=== PATIENT | female | born 2000 | race Caucasian/White ===

== ENCOUNTER 2024-06-14 13:20 | Outpatient (CLI) | payer OTHER, SELFPAY ==
--- NOTE | ~2024-06-14 | US_ITS ---
Pelvic ultrasound. Clinical History: First trimester , establish dates and viability Technique: Realtime transabdominal and transvaginal scanning of the pelvis was performed. Color flow Doppler and Doppler spectral analysis were performed. Findings: The uterus is anteverted, and contains an intrauterine gestation. Yolk sac present. Amo-r ump length of 3.6 cm corresponds to an estimated gestational age of 10 weeks 3 days. heart rate is 165 bpm. The right ovary measures 3.5 x 2.4 x 3.6 cm. No significant right ovarian or adnexal mass is seen. The left ovary measures 2.4 x 1.4 x 1.7 cm. No significant left ovarian or adnexal mass is seen. There is no evidence of free fluid in the cul de sac. Impression: Live intrauterine gestation, with estimated gestational age of 10 weeks 3 days. heart rate is 1 65 bpm. Sonographic LINDSEY is 01/06/2025. Reviewed, dictated and finalized at [facility]. ARCHITECT Impression: Live intrauterine gestation, with estimated gestational age of 10 weeks 3 days. heart rate is 165 bpm. Sonographic LINDSEY is 01/06/2025.
--- OUTSIDE RECORDS SUMMARY | 2024-06-17 13:34 | XMS_ITS | Encounter Summary ---
Author Organization [facility] Address [address] [place] [address] Care Team Providers Care Traditional [facility] Health Practitioner Name Role Phone Mauri Davis MD Primary Care Provider Encounter Details Date Type Department Care Team (Late st Contact Info) Description 12/10/2023 [facility] [address] [place] [address] Jennifer Whalen [address] [place] [address] Social History Tobacco Use Types Packs/Day Years Used Date Smoking Tobacco: Never Assessed Social Connections Answer Date Recorded Social Connections and Isolation 0 09/17/2023 Financial Resource Strain Answer Date R ecorded Financial Resource Strain 0 2023 Stress Answer Date Recorded Stress 0 09/17/2023 Physical Activity Answer Date Recorded Physical Activity 0 09/17/2023 Food Insecurity Answer Date Recorded Food 0 09/17/2023 Transportation Needs Answer Date Record ed Transportation 0 09/17/2023 Housing Stability Answer Date Recorded Housing 0 09/17/2023 Safety and Environment Answer Date Cristo rded Safety 0 09/17/2023 Utilities Answer Date Recorded Utilities 0 09/17/2023 Employment Answer Date Recorded Employment 0 09/17/2023 Comments Unknown Sex and Gender Information Value Date Recorded Sex Assigned at Not on file Legal Sex Female 6:40 PM PDT Gender Identity Female 11/14/2023 4:41 PM PDT Sexual Orientation Bisexual 11/14/2023 4: 41 PM PDT documented as of this encounter Plan of Treatment Not on file documented as of this encounter Procedures Procedure Name Priority Date/Time Associated Diagnosis Comments 30 B RESIN-BASED COMPOSITE - ONE SURFACE POSTERIOR Routine 12/10/2023 12:00 AM CDT 19 O RESIN-BASED COMPOSITE - ONE SURFACE POSTERIOR Routine 12/10/2023 12:00 AM CDT 30 O SEALANT - PER TOOTH Routine 12/10/2023 12:00 AM CDT 19 O SEALANT - PER TOOTH Routine 12/10/2023 12:00 AM CDT 14 O SEALANT - PER TOOTH Routine 12/10/2023 12:00 AM CDT 3 O SEALANT - PER TOOTH Routine 12/10/2023 12:00 AM CDT documented in this encounter Visit Diagnoses Not on filedocumented in this encounter Additional Health Concerns Assessment Noted Time PHQ-9 Depression Total Score: 11 12/27/ 021 9:00 AM PDT documented as of this encounter Care Teams Traditional [facility] Health Practitioner Relationship Specialty Start Date End Date Mauri Davis MD [address] [place] [address] PCP - General 11/14/23 documented as of this encounter
--- OUTSIDE RECORDS SUMMARY | 2024-06-17 13:34 | XMS_ITS | Continuity of Care Document ---
Author Organization [facility] Address [id number] [address] Phone Care Team Providers Care Wireless Technician Name Role Phone John Jimenez DDS Unavailable Unavailable Allergies, Adverse Reactions, Alerts Substance Reaction Status Criticality No Known Allergies Active No Inform ation Medications Medication Instructions Dosage Effective Dates (start - stop) Status Comments pantoprazole 40 mg tablet,delayed release take 1 tablet by oral route every day 40 MG - Active Procedures Procedure Date Bitewings ??? Four Films Periodic Oral Evaluation ??? Established Patient Caries Moderate Risk Exempt From Sealant Measure Prophylaxis ??? Adult Bitewings ??? Four Films Periodic Oral Eval ??? Est Patient - [place] lt Medicaid Prophylaxis ??? Adult SBIRT - AUDIT/DAST, 15-30 MIN OFFICE/OUTPATIENT VISIT EST URINALYSIS AUTO W/O SCOPE OFFICE/OUTPATIENT VISIT EST OFFICE/OUTPATIENT VISIT EST OFFICE/OUTPATIENT VISIT EST OFFICE/OUTPATIENT VISIT, EST Bitewings ??? Four Films Panoramic Film Intraoral ??? Periapical First Film Intraoral ??? Periapical Each Additional Film Intraoral ??? Periapical Each Additional Film Comprehensive Oral Evaluation ??? New Or Established Prophylaxis ??? Adult OFFICE/OUTPATIENT VISIT, EST DESTRUCT B9 LESION, - OFFICE/OUTPATIENT VISIT EST ROUTINE VENIPUNCTURE COMPLETE CBC W/AUTO DIFF WBC COMPREHEN METABOLIC PANEL CHORIONIC GONADOTROPIN TEST LIPID PANEL ASSAY OF FREE THYROXINE ASSAY THYROID STIM HORMONE T3, FREE PREV VISIT, EST, AGE 18-39 THINPREP TIS PAP REFLEX HPV mRNA E6/E7 A OFFICE/OUTPATIENT VISIT, EST Pre-Pay For Services OFFICE/OUTPATIENT VISIT, EST DESTRUCT B9 LESION, 06-08 OFFICE/OUTPATIENT VISIT, EST OFFICE/OUTPATIENT VISIT, EST PSYTX PT&/FAMILY 30 MINUTES OFFICE/OUTPATIENT VISIT, EST OFFICE/OUTPATIENT VISIT, NEW URINE TEST Advance Directives Directive Yes / No Effective Date File Name No Information Encounters Encounter Description Practice Location Reason(s) For Visit Diagnoses Date Provider Providers Copied on Encounter [facility], [id number]- [place], [place], [id number], [place] tel:[phone] [facility] Encounter for dental exam and cleaning w/o abnormal findings 4 Tony Lopez. [address] [place] [address], [id number], [place]. tel:[phone] Referring Provider: John Jimenez, [address] [place] [address], [address]. tel:[phone] [facility], [id number]- [facility], [place], [place], [id number], [place] tel:[phone] [facility] F2 Body mass index (BMI) 39.0-39.9, adult Feb- 3 [facility]. [address], [place], [id number], [place]. tel:[phone] [facility], [id number] [id number] [id number], [place] tel:[phone] [facility] F2 Obesity (BMI 30-39.9)Body mass index (BMI) 30.0-30.9, adult 3 [facility]. [address], [place], [id number], [place]. tel:[phone] [facility], [id number], [address], [place] tel:[phone] [facility] No Information 3 Tony Lopez. [address] [place] [address], [address], [place]. tel:[phone] Referring Provider: John Jimenez, [address] [place] [address], [address]. tel:[phone] OFFICE/OUTPA TIENT VISIT [facility], [id number] [id number], [id number], [place] tel:[phone] [facility] Follow up (chief complaint) Left upper quadrant painBone pain Aug-2 3 Susan Dotson. [address] [place] [address], [id number], [place]. tel:[phone] Referring Provider: Mauri Davis, [address] [place] [address], [address] . tel:[phone] OFFICE/OUTPA TIENT VISIT [facility], [id number], [id number], [place] tel:[phone] [facility] planter warts (chief complaint)k idney pain (chief complaint) Plantar wart, left footUTI (urinary tract infection), uncomplicated Left upper quadrant painPainful micturition, unspecified 3 Susan Dotson. [address] [place] [address], [id number], [place]. tel:[phone] Referring Provider: Mauri Davis, [address] [place] [address], [address] . tel:[phone] OFFICE/OUTPA TIENT VISIT [facility], [id number], [id number], [place] tel:[phone] [facility] Follow up (chief complaint) Sebaceous cystAmenorrhe a 3 Susan Dotson. [address] [place] [address], [id number], [place]. tel:[phone] Referring Provider: Mauri Davis, [address] [place] [address], [address] . tel:[phone] OFFICE/OUTPA TIENT VISIT [facility], [id number], [address], [place] tel:[phone] [facility] follow up (chief complaint) Dysphagia, unspecified typeGastroeso phageal reflux disease without esophagitis 2 Susan Dotson. [address] [place] [address], [id number], [place]. tel:[phone] Referring Provider: Mauri Davis, [address] [place] [address], [address] . tel:[phone] OFFICE/OUTPA TIENT VISIT, [facility], [id number] [id number], [place], [id number], [place] tel:[phone] [facility] Trouble swallowing (chief complaint) Enlarged thyroid 2 Dimitri Salvador. [address] [place] [address], [id number], [place]. tel:[phone] Referring Provider: Madeleine Mosley, [address] [place] [address], [address] . tel:[phone] [facility], [id number] 5827206SED[place]ep[place], [place], [id number], [place] tel:[phone] [facility] No Information 2 Tony Lopez. [address] [place] [address], [address], [place]. tel:[phone] Referring Provider: John Jimenez, [address] [place] [address], [address]. tel:[phone] OFFICE/OUTPA TIENT VISIT, [facility], [id number], [address], [place] tel:[phone] [facility] acid reflux (chief complaint) Gastroesophag eal reflux disease without esophagitis 2 Dimitri Salvador. [address] [place] [address], [id number], [place]. tel:[phone] Referring Provider: Madeleine Mosley, [address] [place] [address], [address] . tel:[phone] OFFICE/OUTPA TIENT VISIT [facility], [id number] [id number], [address], [place] tel:[phone] [facility] test (chief complaint)p lantar wart (chief complaint) Positive testOther fatigueScreen ing for cardiovascula r conditionPlan tar wart, left foot Sep-0 2 Dimitri Salvador. [address] [place] [address], [id number], [place]. tel:[phone] Referring Provider: Madeleine Mosley, [address] [place] [address], [address] . tel:[phone] PREV VISIT, EST, AGE 18-39 [facility], [id number]- [facility], [place], [place], [address], [place] tel:[phone] [facility] annual exam (chief complaint) Encounter for gynecological examination (general) (routine) without abnormal findings 2 Dimitri Salvador. [address] [place] [address], [id number], [place]. tel:[phone] Referring Provider: Madeleine Mosley, [address] [place] [address], [address] . tel:[phone] OFFICE/OUTPA TIENT VISIT, [facility], [id number]- [place], [place], [id number], [place] tel:[phone] [facility] control (chief complaint)a nxiety (chief complaint) Irregular periodsGenera lized Anxiety Disorder 2 Dimitri Salvador. [address] [place] [address], [id number], [place]. tel:[phone] Referring Provider: Madeleine Mosley, [address] [place] [address], [address] . tel:[phone] [facility], [id number] [id number], [id number], [place] tel:[phone] [facility] No Information 2 Dimitri Salvador. [address] [place] [address], [id number], [place]. tel:[phone] OFFICE/OUTPA TIENT VISIT, EST [facility], [id number]- [place], [address], [place] tel:[phone] [facility] N/V, diarrhea, abdominal cramping (chief complaint) Acute gastroenterit is 1 No Information OFFICE/OUTPA TIENT VISIT, [facility], [id number]- [facility], [place], [place], [address], [place] tel:[phone] [facility] wart on bottom of left 2nd toe (chief complaint)r ed bump under left armpit (chief complaint)w ould like labs (chief complaint) Plantar wart, left footBenign skin lesionObesity (BMI 30-39.9)Predi abetesOther benign neoplasm of skin, unspecified 1 No Information OFFICE/OUTPA TIENT VISIT, [facility], [id number], [address], [place] tel:[phone] [facility] itching around anus (chief complaint) Skin yeast infection 1 No Information PSYTX PT&/FAMILY 30 MINUTES [facility], [id number], [place], [address], [place] tel:[phone] [facility] Major depressive disorder, recurrent, moderateGener alized Anxiety Disorder 1 Viridiana Negro. [address], [place], [id number], [place]. tel:[phone] Referring Provider: Sruthi Kemp, [address] [place], [address] . tel:[phone] OFFICE/OUTPA TIENT VISIT, [facility], [id number] [id number], [place], [address], [place] tel:[phone] [facility] referral (chief complaint) AnxietyDepres octavia, unspecified depression typeObesity (BMI 30-39.9)Moder ate major depressionTro uble getting to sleep 1 No Information [facility], [id number] [id number]- [facility], [place], [place], [address], [place] tel:[phone] [facility] Other specified counseling 1 Winifredantonella Ashraf. [address], [place], [place], [place], [address], [place]. tel:[phone] OFFICE/OUTPA TIENT VISIT, [facility], [id number] 8570087BN- [facility], [place], [place], [address], [place] tel:[phone] [facility] (chief complaint) Obesity (BMI 30-39.9)OCP (oral contraceptive pills) initiationIrr egular periodsFamily history of thyroid disorderPredi abetesAnxiety Depression, unspecified depression type 1 No Information Family History Family Member Type Diagnosis Age At Onset No Information Immunizations Vaccine Date Status Comments MCV4 (Menactra) administered Source: [place] [facility] Varicella administered Source: Other R egistry Varicella administered Source: Other R egistry Tdap, Adsorbed administered Source: Other Registry MMR administered Source: Other R egistry DTaP(Infanrix) administered Source: Other Registry Polio-IPV administered Source: Other R egistry Polio-IPV administered Source: Other R egistry MMR administered Source: Other R egistry Hep B, UF administered Source: Other R egistry DTaP(Infanrix) administered Source: Other Registry DTaP(Infanrix) administered Source: Other Registry Polio-IPV administered Source: Other R egistry Hep B, UF administered Source: Other R egistry DTaP(Infanrix) administered Source: Other Registry Hep B, UF administered Source: Other R egistry Polio-IPV administered Source: Other R egistry DTaP(Infanrix) administered Source: Other Registry Payers Payer name Insurance type Covered democrat ID Gisel Kapadia (s) [id number] Social History Type Description Quantity Date Captured Comments Alcohol Use Details Unknown Caffeine Use Details Unknown Tobacco Use Status Current non-smoker Smoking Status Never smoker Non-Smoking Tobacco Use Details : No Details Available : No Details Available Sex Female Sexual Orientation Bisexual Gender Identity Female Chief Complaint And Reason For Visit No Information Reason For Referral Reason For Referral No Information Plan Of Treatment Date Type Action Status Goal Dietary manageme nt education, guidance, and counseling completed Goal Dietary manageme nt education, guidance, and counseling completed Goal Dietary manageme nt education, guidance, and counseling completed Goal Dietary manageme nt education, guidance, and counseling completed Referral Ordered: Referrals: Nuclear Medicine Bone Scan. Location: [facility] ordered Referral Ordered: Referrals: Gynecology. Location: [facility]. Evaluate and treat ordered Referral Ordered: Referrals: ENT. Location: [facility]. Consult ordered Referral Ordered: Referrals: Ct soft tissue neck without contrast. Location: [facility] ordered Referral Ordered: Referrals: thyroid ultrasound. Diagnostic testing ordered Referral Ordered: Referrals: Psychiatry. Evaluate and treat ordered Future Order: Lab Order Preg. Ur ine Qual ([id number]), Sent on: Sent History Of Present Illness Encounter Date Complaint History Of Prese nt Illness Follow up Associated sympt oms include New rx sometimes helps, other times does not and symptoms are worse.. planter warts Had them froze b efore and now they have come back in a different spot kidney pain went to ER on for kidney pain was told she had a UTI and given medication, no changes with medication and still hurting Follow up Had Ct doneHas n ot heard on ENT referral\Would like to go to [facility] back of ear follow up Swallowing probl em Trouble swallowing The difficult y in swallowing began 2 to 3 months ago. The symptoms occur with solids and liquids which cause choking with food sticking in the throat. The client denies aggravating factors. The client denies relieving factors. Additional information: food and liquid, thought it was anxiety but has been getting worse. When she is eating/drinking its almost hard to breathe. states it feels weird on the front of her neck that puts pressure on her throat like its between her throat and her skin, like theres a ball sitting on her throat. acid reflux The onset of the heartburn was 1 year ago. The problem is getting worse. The client reports heartburn. It occurs daily. The symptoms are aggravated by fatty foods and spicy foods. Denies relieving factors. Associated symptoms include reflux. Additional information: when it started mainly at night, would wake her up, stopped eating before bed and avoiding triggers, now during the day as well. Cut down on chocolate, acidic foods, etc helped some. Tums/apple plantar wart dr michele froze a plantar wart on the bottom of her left foot about 5-6 months ago, it went away but then has started coming back about the last month. Wants it frozen again. test Pt wanting a com plete check up, now has insurance and wants things checked. She is wanting her thyroid checked because she had thermography a few months ago and something showed up told to get labs. annual exam Currently pregna nt: no.Client is not contemplating . The client states she uses none for control. Last LMP was 12/19/2021. Her menses is irregular. Negative for dysmenorrhea and menorrhagia. Negative for: breast discharge, breast lump(s) and breast pain. Pertinent negatives include vaginal discharge and vaginal itching. The client does not use tobacco. She has not been exposed to passive smoke. She has not been exposed to passive vaping. Additional information: pts first pap had period from 12/19/21-12/24 then 1 week later started again lasted 13-14 days and looked brownish. anxiety There is improve ment of initial symptoms. The client presents with anxious/fearful thoughts. Additional information: sees Dr. Painting at [facility] for anxiety. control wanting to talk about control- she is on buspar for anxiety. Has been doing homeopathic things to help with her hormones. She is scared that she is going to start control and throw her hormones out of whack. She sees a investigative research specialist, drinks different concentrates, bach lozenges with herbs/roots, magnesium phosphate as well. Has had bad reactions to all sorts of meds. She has been on control 2x already that really messed with her hormones. She has not had a pap smear yet, is very terrified. EST care N/V, diarrhea, abdominal crampin g Pt recently went to the er for n/v and diarrhea on 05/18/21. The vomiting has resolved. She still feels a little nauseated but not severe. she is pushing fluids and eating a little. She declines antiemetic. The ER told her to take Imodium. she states that this has slowed the frequency of diarrhea but is still having diarrhea. She was diffuse abdominal cramps at times. she had a fever at the ER (99.5) but none since. She reports waking with a rash all over her body this morning but this resolved. wart on bottom of left 2nd toe P t would like cryo on a wart of her left 2nd toe. red bump under left armpit Pt prakash s noticed a small bump on left underarm area. She states it gets irritated when she shaves. No signs of infection but would like this gone so it doesn't hurt after shaving anymore. would like labs Pt would like a lab order for the HD. itching around anus Pt has had a constant itch of her anus for 3 days. She states the only thing she has done different is she used her 's shampoo for a bubble bath the night before this started. She also had a bout of diarrhea 4 days ago, this has resolved. She felt for hemorrhoids and didn't feel anything. She has been using hydrocortisone ointment but this is not helping. She had pinworms as a kid but states that itching was intermittent.She has started having vaginal itching too. referral Wanting a referr al for psychiatrist at [facility] in [place]. She reports chronic depression and anxiety. Her anxiety has worsened significantly over the last 2 weeks. She thinks this could be due to a few things. She states she can't function feeling the way she does. She reports panic attacks and trouble sleeping. She would like something for anxiety and sleep in the meantime before she sees psych.Denies unsafe thoughts/intention towards herself or others. She states that she gets so scared during her panic attacks she worries that she might hurt herself even though she doesn't want to (even during a panic attack she does not want to hurt or kill herself). [facility] Pt presents to [facility] with a PCP. She was started on Paxil 20mg in Mar 2020 for anxiety and depression. She states she had bad side effects for the first 2 weeks of taking paxil but these have all resolved. Paxil is helping. She still has days where she thinks she might need an increased dose but is afraid to increase dose because she doesn't want those side effects again. She feels like her anxiety is situational, she is planning a wedding (December 2020). Denies any unsafe thoughts towards herself or others. She has had anxiety and depression in the past. She states that it flared up this fall because of her job at the time. She has quit this job and feels much better. She has irregular periods and has since she started her period at age 9. LMP 2-11-21. Has been on OCP before to help regulate periods. Interested in starting again to regulate periods. She has never been sexually active. Has never had a WWE. No history of blood clots. No tobacco use. She doesn't remember which OCP she was on as a teen but she states it caused her to have some mood swings. Reports being told she was prediabetes in the past. She had labs in Mar 2020 but unsure what they checked. She is willing to get labs now. She was told she needed to have a recheck because her liver enzymes were elevated in Mar 2020. She denies tylenol use. She rarely drinks alcohol (had 1 drink in December 2019). No history of drug use. Reports a strong family history of thyroid disorders. She states she has multiple sx of hypothyroidism but her labs have always been normal. Functional Status Date Functional Assessmen t No Information Instructions Date Instruction Additional Infor mation Dietary management e ducation, guidance, and counseling Related to Body mass index [BMI] 39.0-39.9, adult Dietary management e ducation, guidance, and counseling Related to Body mass index [BMI] 30.0-30.9, adult Dietary management e ducation, guidance, and counseling Related to Obesity (BMI 30-39.9) recommend getting a Nuclear Med Bone Scanwill call when results are available. Ca Lane LPN was acting as the scribe for this visit. The scribe's documentation has been prepared under my direction and personally reviewed by me. I confirm that the note above accurately reflects all work, treatment, procedures, counseling and medical decision making performed by me. Related to Left upper quadrant pain reviewed pt ER recor ds and Ct of her abdomen was normal. discussed with pt since she has been under a lot of stress lately, the pain, and nausea, this can likely be a gastric ulcer. will send Pantoprazole today for her to try. Ca Lane LPN was acting as the scribe for this visit. The scribe's documentation has been prepared under my direction and personally reviewed by me. I confirm that the note above accurately reflects all work, treatment, procedures, counseling and medical decision making performed by me. Related to Left upper quadrant pain cryo done today on w art on bottom of left foot. pt tolerated well. Related to Plantar wart, left foot UA today showed Trace of WBC's. Related to UTI (urinary tract infection), uncomplicated will send referral t [facility] in [place]. they will call with appt. Ca Lane LPN was acting as the scribe for this visit. The scribe's documentation has been prepared under my direction and personally reviewed by me. I confirm that the note above accurately reflects all work, treatment, procedures, counseling and medical decision making performed by me. Related to Amenorrhea drained left postaur icular sebaceous cyst. pt tolerated well. Related to Sebaceous cyst advised pt that her thyroid is not enlarged. recommend referral to ENT and Ct soft tissue neck. will call when results are available. Ca Lane LPN was acting as the scribe for this visit. The scribe's documentation has been prepared under my direction and personally reviewed by me. I confirm that the note above accurately reflects all work, treatment, procedures, counseling and medical decision making performed by me. Related to Dysphagia, unspecified type I will order thyroid ultrasound to evaluate her symptoms, she does have enlarged thyroid on exam. Her thyroid labs were normal in january. follow up in 6-[address] Davis Related to Enlarged thyroid Continue avoiding tr igger foods, elevate head of bed. Work on weight loss. I will prescribe omeprazole 40 mg daily. follow up as scheduled Related to Gastroesophageal reflux disease without esophagitis cryo to wart on left foot, pt tolerated well, contact clinic with any problems Related to Plantar wart, left foot will order screening lipid Relat ed to Screening for cardiovascular condition will check blood pre gnancy test and contact pt with results Related to Positive test will check labs toda y and contact pt with results Related to Other fatigue cbe, pelvic and pap performed todaywe will contact the patient with results and recommendations Related to Encounter for gynecological examination (general) (routine) without abnormal findings continue following u p with [facility] for treatment. Related to Generalized Anxiety Disorder Pt has some irregula r periods, is going to schedule a pap smear. She doesnt want to do anything hormonal, not interested in copper IUD. She will just use condoms for now. Related to Irregular periods Mental health care education Rel ated to Moderate major depression Weight control education Related to Obesity (BMI 30-39.9) Dietary management e ducation, guidance, and counseling Related to Obesity (BMI 30-39.9) Patient advised about exercise R elated to Obesity (BMI 30-39.9) Weight control education Related to Obesity (BMI 30-39.9) Mental health care education Rel ated to Depression, unspecified depression type Assessments Type Assessment Date assessment Encounter for dental exam and cl eaning w/o abnormal findings Patient Care Teams Name Effective Dates (start - stop) Status Members No Information
--- OUTSIDE RECORDS SUMMARY | 2024-06-17 13:34 | XMS_ITS | Encounter Summary ---
Author Organization [facility] Address [address] [place] [address] Care Team Providers Care Health Systems Analyst Name Role Phone Mauri Davis MD Primary Care Provider [phone] Reason for Visit * Reason Comments Office Visit: Converted Data Conversion Encounter Details Date Type Department Care Team (Late st Contact Info) Description 12/02/2023 Dental Interim Note [facility] [address] [place] [address] Default, [facility] Provider [place] Social History Tobacco Use Types Packs/Day Years [...] on file documented as of this encounter Visit Diagnoses Not on filedocumented in this encounter Additional Health Concerns Assessment Noted Time PHQ-9 Depression Total Score: 11 12/27/2 021 9:00 AM PDT documented as of this encounter Care Teams Health Systems Analyst Relationship Specialty Start Date End Date Mauri Davis MD [address] [place] [address] PCP - General 11/14/23 documented as of this encounter
--- OUTSIDE RECORDS SUMMARY | 2024-06-17 13:34 | XMS_ITS | Clinical Summary ---
Author Organization [facility] Address [address] [place] [address] Care Team Providers Care Tractor Trailer Driver Name Role Phone Mauri Davis MD Primary Care Provider [phone] Source Comments PLEASE NOTE, if this patient is a minor, it may be UNLAWFUL to discuss sensitive information that is contained in these records (such as FAMILY PLANNING, MENTAL HEALTH or SUBSTANCE ABUSE) with the minor patient's parent or other person without the patient's specific authorization.[facility] Medications pantoprazole (PROTONIX) 40 mg EC tablet Take 1 Tablet by mouth daily. 08/27/2022 Active Active Problems Problem Noted Date Diagnosed Date Goiter Irregular periods FH: Thyroid disorder Anxiety Prediabetes Body mass index 30+ - obesity Depressive disorder Candidiasis of skin Verruca plantaris Skin lesion Urinary tract infectious disease Acute gastroenteritis Moderate major depression Initial insomnia Dysphagia Bone pain Sebaceous cyst of skin Immunizations Name Administration Dates Next Due DTAP 11/18/2005, 1,04/28/2000,01/14/2000,0 1999 Hep B, Unspecified 03/10/2001,01/14/2000, 000 IPV 11/17/2005,04/06/2001,01/14/2000 ,1999 MENINGOCOCCAL MCV4P (MENACTRA) 03/06/2016 MMR (MMR II/Priorix) 11/20/2005,03/10/2001 TDAP 12/20/2013 Varicella, Live Vaccine 03/09/2014,12/29/2013 Social History Tobacco Use Types Packs/Day Years Used Date Smoking Tobacco: Never Assessed Social Connections Answer Date Recorded Connectedness 0 02/09/2024 Financial Resource Strain Answer Date R ecorded Financial Resource Strain 0 2023 Stress Answer Date Recorded Stress 0 09/17/2023 Physical Activity Answer Date Recorded Physical Activity 0 09/17/2023 Food Insecurity Answer Date Recorded Food 0 02/19/2024 Transportation Needs Answer Date Record ed Transportation 0 09/17/2023 Housing Stability Answer Date Recorded Housing 0 09/17/2023 Safety and Environment Answer Date Cristo rded Safety 0 09/17/2023 Utilities Answer Date Recorded Utilities 0 09/17/2023 Employment Answer Date Recorded Stress 0 02/09/2024 Comments Unknown Sex and Gender Information Value Date Recorded Sex Assigned at Not on file Legal Sex Female 6:40 PM PDT Gender Identity Female 11/14/2023 4:41 PM PDT Sexual Orientation Bisexual 11/14/2023 4: 41 PM PDT Last Filed Vital Signs Vital Sign Reading Time Taken Comments Blood Pressure 134/80 09/23/2022 3:37 PM CDT Pulse 74 09/23/2022 3:37 PM CDT Temperature 36.7 ??C (98 ??F) 09/12/2022 4:31 PM CDT Respiratory Rate 16 09/12/2022 4:31 PM CDT Oxygen Saturation 99% 09/12/2022 4:31 PM CDT Inhaled Oxygen Concentration - - Weight 92.1 kg (203 lb) 09/12/2022 4:31 PM CDT Height 152.4 cm (5') 09/12/2022 4:31 PM CDT Body Mass Index 39.65 09/12/2022 4:31 PM CDT Plan of Treatment Health Maintenance Due Date Last Done Comments HPV Screening 1999 Hepatitis C Screening 1999 Pap + HPV 1999 Tobacco Screening 1999 Chlamydia Screening 2012 Gonorrhea Screening 2012 HIV Screening 2014 Imm-HPV (1 - 3-dose series) 2014 Relationship Safety Screening/Counseling 2014 Depression Monitoring 03/29/2021 12/27/2020 Diabetes Screening 01/31/2023 01/31/2022 Hypertension Screening (#1) 09/23/2023 Imm-DTaP/Tdap/Td (7 - Td or Tdap) 12/21/2023 12/20/2013, 11/18/2005, 03/10/2001, Additional history exists Nud-IMSIE-28 (2023- season) 2024 Imm-Influenza (#1) 2024 Alcohol and Drug Screen 05/26/2024 Cervical Cancer Screening 01/16/2025 Pap Smear 01/16/2025 01/16/2022 Imm-Hepatitis B Completed 03/10/2001, 12/25, 1999 Imm-Varicella Completed 03/09/2014, 12/29/2013 Cervical Ablation/Cold-Knife Conization Discontinued Cervical Cryotherapy Discontinued Colposcopy Discontinued Endometrial Biopsy Discontinued Excision/Leep Discontinued HPV Genotyping Discontinued Vaginal Pap Discontinued Vulvoscopy Discontinued Procedures Procedure Name Priority Date/Time Associated Diagnosis Comments COMPREHENSIVE METABOLIC PANEL Routine 01/31/2022 3:51 PM CDT THINPREP IMAGING PAP REFLEX HPV RNA E6/E7 (Q) Routine 01/16/2022 3:17 PM CDT from Last 3 Months or Most Recently Relevant to Health Maintenance Results * COMPREHENSIVE METABOLIC PANEL (01/31/2022 3:51 PM CDT) ALKALINE PHOSPHATASE 55 25 - 150 U/L 01/31/2022 3:51 PM CDT DATA CONVERSION ALT 30 10 - 45 U/L 01/31/2022 3:51 PM CDT DATA CONVERSION GLUCOSE 93 65 - 95 mg/dL 01/31/2022 3:51 PM CDT DATA CONVERSION SODIUM 137 135 - 145 mmol/L 01/31/2022 3:51 PM CDT DATA CONVERSION CALCIUM 9.0 8.7 - 10.2 mg/dL 01/31/2022 3:51 PM CDT DATA CONVERSION BUN/CREAT 14 9 - 23 01/31/2022 3:51 PM CDT DATA CONVERSION TOTAL BILIRUBIN 0.3 0.0 - 1.2 mg/dL 01/31/2022 3:51 PM CDT DATA CONVERSION ALBUMIN 4.2 3.5 - 5.5 g/dL 01/31/2022 3:51 PM CDT DATA CONVERSION AST SERPL-CCNC 28 0 - 40 U/L 01/31/2022 3:51 PM CDT DATA CONVERSION CREATININE 1.0 0.6 - 1.0 mg/dL 01/31/2022 3:51 PM CDT DATA CONVERSION ALBUMIN/GLOBULIN RATIO 1.7 1.1 - 2.5 01/31/2022 3:51 PM CDT DATA CONVERSION ANION GAP 14 01/31/2022 3:51 PM CDT DATA CONVERSION CL 103 97 - 108 mmol/L 01/31/2022 3:51 PM CDT DATA CONVERSION UREA NITROGEN 14 6 - 24 mg/dL 01/31/2022 3:51 PM CDT DATA CONVERSION ESTIMATED GLOMERULAR FILTRATION RATE >59 >59 mL/min/1.7 3 01/31/2022 3:51 PM CDT DATA CONVERSION POTASSIUM (MMOL/L) IN URINE 4.1 3.5 - 5.2 mmol/L 01/31/2022 3:51 PM CDT DATA CONVERSION CARBON DIOXIDE (CO2) 24 20 - 32 mmol/L 01/31/2022 3:51 PM CDT DATA CONVERSION TOTAL PROTEIN 6.7 6.0 - 8.5 g/dL 01/31/2022 3:51 PM CDT DATA CONVERSION 01/31/2022 3:51 PM CDT [facility] Provider Default LAB - BLOOD DRAW Final Re sult DATA CONVERSION * THINPREP IMAGING PAP REFLEX HPV RNA E6/E7 (Q) (01/16/2022 3:17 PM CDT) SOURCE SEE NOTE 01/16/2022 3:17 PM CDT DATA CONVERSION Comment:Endocervix LMP SEE NOTE 01/16/2022 3:17 PM CDT DATA CONVERSION Comment:12/24/21 PREV. PAP SEE NOTE 01/16/2022 3:17 PM CDT DATA CONVERSION Comment:NONE PREV. BX SEE NOTE 01/16/2022 3:17 PM CDT DATA CONVERSION Comment:NONE COMMENT SEE NOTE 01/16/2022 3:17 PM CDT DATA CONVERSION Comment:This Pap test has be en evaluated with computer assisted technology. ELECTRIC FREIGHT CAR OPERATOR SEE NOTE 01/17/20 3:17 PM CDT DATA CONVERSION Comment:RRD, CT(ASCP) CT Scr eening Location: [facility] [address] [address] COMMENT SEE NOTE 01/16/2022 3:17 PM CDT DATA CONVERSION Comment: EXPLANATORY NOTE: The Pap is a screening test for cervical cancer. It is not a diagnostic test and is subject to false negative and false positive results. It is most reliable when a satisfactory sample, regularly obtained, is submitted with relevant clinical findings and history, and when the Pap result is evaluated along with historic and current clinical information. CLINICAL INFORMATION SEE NOTE 12/25 3:17 PM CDT DATA CONVERSION Comment:PAP STATEMENT OF ADEQUACY SEE NOTE 01/16/2022 3:17 PM CDT DATA CONVERSION Comment:Satisfactory for irais luation. Endocervical/transformation zone component present. INTERPRETATION/RESUL T SEE NOTE 01/16/2022 3:17 PM CDT DATA CONVERSION Comment:Negative for intraep ithelial lesion or malignancy. 01/16/2022 3:17 PM CDT [facility] Provider Default LAB - NO BLOOD DRAW Final Result DATA CONVERSION from Last 3 Months or Most Recently Relevant to Health Maintenance Care Teams Tractor Trailer Driver Relationship Specialty Start Date End Date Mauri Davis MD [address] [place] [address] PCP - General 11/14/23
== END 2024-06-14 13:21 | disposition home or self-care (01) ==
LOC: ANHIMG 13:22
PROVIDERS: Visit Provider Student in an Organized Health Care Education/Training Program
DX: N94.89 Other specified conditions associated with female genital organs and menstrual cycle (principal)
CPT/HCPCS: 76801; 76817